=== PATIENT | female | born 1955 | race Caucasian/White ===

== ENCOUNTER 2018-11-27 09:35 | Emergency (ER) | payer OTHER, SELFPAY ==
--- OUTSIDE RECORDS SUMMARY | 2018-11-27 09:38 | XMS REPORT ---
:1955 [facility] Address [address] [place] [address] Dr. Blum [address] [place] [id number] Care Team Providers Name Role Phone Unavailable Unavailable Unavailable Problems This patient has no known problems. Allergies, Adverse Reactions, Alerts This patient has no known allergies or adverse reactions. Medications This patient has no known medications.
--- OUTSIDE RECORDS SUMMARY | 2018-11-27 09:38 | XMS REPORT | Clinical Summary ---
:1955 Author Organization [facility] Address [address] [place] [address] Care Team Providers Name Role Phone Filomena Jimenez Primary Care Provider Allergies Active Allergy Reactions Severity Noted Date Comments Sulfa (Sulfonamide Antibiotics) 2017 Medications Medication Sig Dispensed Refills Start End Status Date Date atenolol (TENORMIN) 50 50 mg daily. 0 Active MG tablet 8 PROAIR HFA 90 Inhale 2 0 Active mcg/actuation inhaler puffs every 6 8 (six) hours as needed. DULoxetine (CYMBALTA) Take 60 mg by 0 Active 60 MG capsule mouth daily. 8 lamoTRIgine (LaMICtal) Take 200 mg 0 Active 200 MG tablet by mouth 8 daily. hydroCHLOROthiazide Take 12.5 mg 0 Active (MICROZIDE) 12.5 mg by mouth 8 capsule every morning. rosuvastatin (CRESTOR) Take 20 mg by 0 Active 20 MG tablet mouth daily. levothyroxine Take 1 tablet 0 Active (SYNTHROID, LEVOXYL) by mouth 8 100 mcg tablet daily. SYMBICORT 80-4.5 Inhale 2 0 Discontinued mcg/actuation inhaler puffs 2 (two) 8 018 (Non-compliance times a day. ) levothyroxine Take 75 mcg 0 Discontinued (SYNTHROID, LEVOXYL) 75 by mouth 8 019 mcg tablet every morning. nicotine polacrilex Chew 1 each 100 each 0 (NICORETTE) 2 mg gum (2 mg total) 8 018 as needed for smoking cessation for up to 30 days. nicotine (NICODERM CQ) Place 1 patch 30 patch 0 Discontinued 14 mg/24 hr on the skin 8 018 daily for 30 days. nicotine (NICODERM CQ) Place 1 patch 30 patch 0 14 mg/24 hr on the skin 8 018 daily for 30 days. amoxicillin-pot 0 Discontinued clavulanate (AUGMENTIN) 8 019 875-125 mg per tablet sucralfate (CARAFATE) 1 Take 1 g by 0 gram tablet mouth. 9 019 Active Problems Problem Noted Date Chronic obstructive pulmonary disease 11/27/2017 Tobacco abuse 11/27/2017 ILD (interstitial lung disease) 11/27/2017 Essential hypertension 11/27/2017 Dyspnea on exertion Encounters Date Type Specialty Care Team Description 11/22/2018 Orders Only Pulmonology Phyllis Bryant MA Chronic obstructive pulmonary disease, unspecified COPD type (HCC); Tobacco abuse; Pulmonary nodules 11/13/2018 Telephone Pulmonology Myrna Muñiz MA 08/29/2018 Office Visit Pulmonology Tarik Casas MD Chronic obstructive pulmonary disease, unspecified COPD type (HCC) (Primary Dx); Tobacco abuse; Pulmonary nodules; Essential hypertension 05/28/2018 Office Visit Pulmonology Tarik Casas MD Chronic obstructive pulmonary disease, unspecified COPD type (HCC) (Primary Dx); Tobacco abuse 05/21/2018 Orders Only Pulmonology Phyllis Bryant MA Chronic obstructive pulmonary disease, unspecified COPD type (HCC); Tobacco abuse 05/06/2018 Telephone Pulmonology Phyllis Bryant MA 03/18/2018 Office Visit Pulmonology Tarik Casas MD Chronic obstructive pulmonary disease, unspecified COPD type (HCC) (Primary Dx); Tobacco abuse; Pulmonary nodules 12/10/2017 Clinical Support Pulmonology Tarik Casas MD Chronic obstructive pulmonary disease, unspecified COPD type (HCC); Vandana Gould Tobacco abuse 12/10/2017 Clinical Support Pulmonology Vandana Gould Chronic obstructive pulmonary disease, unspecified COPD type (HCC); Tobacco abuse 12/10/2017 Clinical Support Pulmonology Vandana Gould Chronic obstructive pulmonary disease, unspecified COPD type (HCC) 12/10/2017 Office Visit Pulmonology Tarik Casas MD Chronic obstructive pulmonary disease, unspecified COPD type (HCC) (Primary Dx); Pulmonary nodules; Tobacco abuse; ILD (interstitial lung disease) (HCC) 12/06/2017 Orders Only Pulmonology Phyllis Bryant MA Chronic obstructive pulmonary disease, unspecified COPD type; Tobacco abuse 12/03/2017 Telephone Pulmonology Phyllis Bryant MA 11/27/2017 Telephone Pulmonology Phyllis Bryant MA 11/27/2017 Telephone Pulmonology Deidra Kraft MA 11/27/2017 Telephone Pulmonology Alban Ramírez MA 2017 Office Visit Pulmonology Tarik Casas MD Chronic obstructive pulmonary disease, unspecified COPD type (Primary Dx); Tobacco abuse; ILD (interstitial lung disease); Essential hypertension after 2017 Immunizations Name Administration Dates Next Due FLUZONE QUAD PF 2017 Pneumococcal Polysaccharide 09/22/2014 Family History Medical History Relation Name Comments Cancer Father Emphysema Father Cancer Mother Relation Name Status Comments Father Mother Social History Tobacco Use Types Packs/Day Years Used Date Current Every Day Smoker Smokeless Tobacco: Never Used Sex Assigned at Date Recorded Not on file Job Start Date Occupation Industry Not on file Not on file Not on file Travel History Travel Start Travel End No recent travel history available. Last Filed Vital Signs Vital Sign Reading Time Taken Comments Blood Pressure 130/76 08/29/2018 11:04 AM CDT Pulse 70 08/29/2018 11:04 AM CDT Temperature 36.7 C (98 F) 08/29/2018 11:04 AM CDT Respiratory Rate - - Oxygen Saturation 95% 08/29/2018 11:04 AM CDT Inhaled Oxygen Concentration - - Weight 74.4 kg (164 lb) 08/29/2018 11:04 AM CDT Height 165.1 cm (5' 5") 12/10/2017 2:33 PM CDT Body Mass Index 27.29 12/10/2017 2:33 PM CDT Plan of Treatment Date Type Specialty Care Team Description 12/23/2018 [place] [id number] [facility] [address] [place] [address] Health Maintenance Due Date Last Done Comments CERVICAL CANCER SCREENING 1977 BREAST CANCER SCREENING 2006 COLONOSCOPY SCREENING 2006 SHINGLES VACCINES (#1) 2006 INFLUENZA VACCINE 10/10/2018 2017 Procedures Procedure Name Priority Date/Time Associated Diagnosis Comments CT CHEST WO Routine 11/22/2018 3:37 PM Chronic obstructive CONTRAST CDT pulmonary disease, unspecified COPD type (HCC) Tobacco abuse Pulmonary nodules CT CHEST WO Routine 05/21/2018 4:21 PM Chronic obstructive Results for this CONTRAST CDT pulmonary disease, procedure are in unspecified COPD the results type (HCC) section. Tobacco abuse CT CHEST LUNG Routine 12/06/2017 10:13 AM Chronic obstructive Results for this CANCER SCREENING CDT pulmonary disease, procedure are in unspecified COPD the results type section. Tobacco abuse OBTAIN MEDICAL Routine 12/04/2017 4:59 PM Chronic obstructive Results for this RECORDS CDT pulmonary disease, procedure are in unspecified COPD the results type section. Tobacco abuse after [address] Chest Wo Contrast (11/22/2018 3:37 PM CDT)Only the most recent of2 resultswithin the time period is included. 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
[2018-11-27] MEDS ORDERED: CYCLOBENZAPRINE 10 MG TAB ONE (10:09)
[2018-11-27] MEDS ORDERED: IBUPROFEN 200 MG TAB PO ONE (10:10)
--- NOTE | 2018-11-27 11:15 | EDPHYS ---
Physician Documentation [facility] Name: Chanell Kohler Age: 63 yrs Sex: Female : 1955 Arrival Date: 11/27/2018 Time: 09:45 Bed 18 Private MD: ED Physician Arnel Bull HPI: 11/27 11:00 This 63 yrs old Female presents to ER via Ambulatory with complaints of Fall pm1 Injury. 11:00 Details of fall: The patient fell Details of fall: The patient fell from a height, from pm1 a ladder, approximately 1 feet. Onset: The symptoms/episode began/occurred this morning, at 03:00. Associated injuries: The patient sustained right bicep. Severity of symptoms: in the emergency department the symptoms have improved. The patient has not experienced similar symptoms in the past. The patient has not recently seen a physician. Patient was stepping down from a ladder and missed the last step causing her to fall on her right side. Patient presenting with pain to right biceps area. No head injury, headache, neck pain. No right shoulder pain. Patient walking without any pain. No hip pain. Historical: - Allergies: :59 Sulfa (Sulfonamide Antibiotics); hb - Home Meds: 10:06 Crestor 20 mg oral tab 1 tab once daily [Active]; atenolol 50 mg Oral tab 1 tab once iw daily [Active]; levothyroxine 100 mcg tab 1 tab once daily [Active]; hydrochlorothiazide 12.5 mg Oral tab 1 tab once daily [Active]; Cymbalta 60 mg oral cpDR 1 cap once daily [Active]; Lamictal 200 mg Oral tab 1 tab once daily [Active]; multivitamin oral cap daily [Active]; Fish Oil oral oral daily [Active]; vitamin B complex oral cap daily [Active]; Vitamin C Oral daily [Active]; - PSHx: :59 gallbladder stent; Tubal ligation; Hysterectomy; Appendectomy; hb - Immunization history: Last tetanus immunization: - up to date. - Social history:: Smoking status: Patient/guardian denies using tobacco. - Ebola Screening: : No symptoms or risks identified at this time. ROS: 11:00 Constitutional: Negative for fever, chills, and weight loss, Eyes: Negative for injury, pm1 pain, redness, and discharge, ENT: Negative for injury, pain, and discharge, Neck: Negative for injury, pain, and swelling, Cardiovascular: Negative for chest pain, palpitations, and edema, Respiratory: Negative for shortness of breath, cough, wheezing, and pleuritic chest pain, Abdomen/GI: Negative for abdominal pain, nausea, vomiting, diarrhea, and constipation, Back: Negative for injury and pain. 11:00 Skin: Negative for injury, rash, and discoloration, Neuro: Negative for headache, weakness, numbness, tingling, and seizure. 11:00 MS/extremity: Positive for pain, of the right bicep, Negative for decreased range of motion, deformity. Exam: 11:00 Constitutional: This is a well developed, well nourished patient who is awake, alert, pm1 and in no acute distress. Head/Face: Normocephalic, atraumatic. Eyes: Pupils equal round and reactive to light, extra-ocular motions intact. Lids and lashes normal. Conjunctiva and sclera are non-icteric and not injected. Cornea within normal limits. Periorbital areas with no swelling, redness, or edema. ENT: Nares patent. No nasal discharge, no septal abnormalities noted. Tympanic membranes are normal and external auditory canals are clear. Oropharynx with no redness, swelling, or masses, exudates, or evidence of obstruction, uvula midline. Mucous membranes moist. Neck: Trachea midline, no thyromegaly or masses palpated, and no cervical lymphadenopathy. Supple, full range of motion without nuchal rigidity, or vertebral point tenderness. No Meningismus. Chest/axilla: Normal chest wall appearance and motion. Nontender with no deformity. No lesions are appreciated. Cardiovascular: Regular rate and rhythm with a normal S1 and S2. No gallops, murmurs, or rubs. Normal PMI, no JVD. No pulse deficits. Respiratory: Lungs have equal breath sounds bilaterally, clear to auscultation and percussion. No rales, rhonchi or wheezes noted. No increased work of breathing, no retractions or nasal flaring. Abdomen/GI: Soft, non-tender, with normal bowel sounds. No distension or tympany. No guarding or rebound. No evidence of tenderness throughout. Back: No spinal tenderness. No costovertebral tenderness. Full range of motion. Skin: Warm, dry with normal turgor. Normal color with no rashes, no lesions, and no evidence of cellulitis. 11:00 Musculoskeletal/extremity: Extremities: grossly normal except: noted in the right bicep: tenderness, There is no evidence of decreased ROM, deformity, swelling, Circulation is intact in all extremities. Pulses: are normal with no appreciated deficits, noted to be 2+ in the right radial artery. Vital Signs: 09:53 BP 130 / 62; Pulse 63; Resp 16; Temp 98.2; Pulse Ox 100% on R/A; Weight 54.43 kg; hb Height 5 ft. 4 in. (162.56 cm); Pain 2/10; 10:53 BP 105 / 59; Pulse 59; Resp 16; Temp 98.0(O); Pulse Ox 98% on R/A; mh5 09:53 Body Mass Index 20.60 (54.43 kg, 162.56 cm) hb Nery Coma Score: 09:53 Eye Response: spontaneous(4). Verbal Response: oriented(5). Motor Response: obeys hb commands(6). Total: 15. Trauma Score (Adult): 09:53 Eye Response: spontaneous(1); Verbal Response: oriented(1); Motor Response: obeys hb commands(2); Systolic BP: > 89 mm Hg(4); Respiratory Rate: 10 to 29 per min(4); [place] Score: 15; Trauma Score: 12 10:45 Eye Response: spontaneous(1); Verbal Response: oriented(1); Motor Response: obeys hb commands(2); Systolic BP: > 89 mm Hg(4); Respiratory Rate: 10 to 29 per min(4); Nery Score: 15; Trauma Score: 12 MDM: 09:51 Patient medically screened. pm1 11:13 Data reviewed: vital signs. Data interpreted: Pulse oximetry: on room air is 98 %. pm1 Interpretation: normal. Counseling: I had a detailed discussion with the patient and/or guardian regarding: the historical points, exam findings, and any diagnostic results supporting the discharge/admit diagnosis, radiology results, the need for outpatient follow up, to return to the emergency department if symptoms worsen or persist or if there are any questions or concerns that arise at home. 11:27 ED course: Patient able to move right arm full range of motion without any difficulty. pm1 Offered sling, but patient wants to work tomorrow. recommended that if pain worsens then she can get a sling OTC and use when not working. 11/27 09:57 Order name: Briana Right XRAY; Complete Time: 11:25 pm1 Administered Medications: 10:16 Drug: Flexeril 10 mg Route: PO; hb 10:16 Drug: Ibuprofen 600 mg Route: PO; hb Disposition: 13:26 Co-signature as Attending Physician, Arnel Bull MD I agree with the assessment and kdr plan of care. Disposition: 11/27/18 11:14 Discharged to Home. Impression: Contusion of right upper arm, Strain of muscle, fascia and tendon of long head of biceps, right arm. - Condition is Stable. - Discharge Instructions: Contusion, Muscle Strain. - Prescriptions for Cyclobenzaprine 10 mg Oral Tablet - take 1 tablet by ORAL route every 8 hours As needed; 30 tablet. - Work release form, Medication Reconciliation Form, Thank You Letter, Antibiotic Education, Prescription Opioid Use form. - Follow up: Emergency Department; When: As needed; Reason: Worsening of condition. Follow up: Private Physician; When: 2 - 3 days; Reason: Recheck today's complaints, Continuance of care, Re-evaluation by your physician. - Problem is new. - Symptoms have improved. Signatures: Dispatcher [employer] EDMS Arnel Bull MD MD [facility] Yari Bustillos RN RN Chris Xiong NP E LEARNING COORDINATOR pm1 Chantelle Ramos RN RN hb Corrections: (The following items were deleted from the chart) 11:34 11:14 11/27/2018 11:14 Discharged to Home. Impression: Contusion of right upper arm; hb Strain of muscle, fascia and tendon of long head of biceps, right arm. Condition is Stable. Forms are Medication Reconciliation Form, Thank You Letter, Antibiotic Education, Prescription Opioid Use. Follow up: Emergency Department; When: As needed; Reason: Worsening of condition. Follow up: Private Physician; When: 2 - 3 days; Reason: Recheck today's complaints, Continuance of care, Re-evaluation by your physician. Problem is new. Symptoms have improved. pm1
--- NOTE | 2018-11-27 11:15 | ER ---
Nurse's Notes [facility] Name: Chanell Kohler Age: 63 yrs Sex: Female : 1955 Arrival Date: 11/27/2018 Time: 09:45 Bed 18 Private MD: Diagnosis: Contusion of right upper arm;Strain of muscle, fascia and tendon of long head of biceps, right arm Presentation: 11/27 09:53 Presenting complaint: Slipped on last step while descending ladder, fell onto right side, c/o right upper arm pain 2/10. Denies other injuries. Negative LOC. Not on blood thinners. Care prior to arrival: None. Mechanism of Injury: Fall down 1 steps. Trauma event details: Injury occurred in the [facility], Injury occurred: at home. Injury occurred: November 27, 2018 Injury occurred at: 09:00. 09:53 Acuity: MIKY 3 hb 09:53 Method Of Arrival: Ambulatory 09:59 Transition of care: patient was not received from another setting of care. Onset of hb symptoms was November 27, 2018. Risk Assessment: Do you want to hurt yourself or someone else? Patient reports no desire to harm self or others. Initial Sepsis Screen: Does the patient meet any 2 criteria? No. Patient's initial sepsis screen is negative. Does the patient have a suspected source of infection? No. Patient's initial sepsis screen is negative. Trauma Activation: Not Applicable Physician: ED Physician; Name: ; Notified At: ; Arrived At: Physician: General Surgeon; Name: ; Notified At: ; Arrived At: Physician: Radiology; Name: ; Notified At: ; Arrived At: Physician: Respiratory; Name: ; Notified At: ; Arrived At: Physician: Lab; Name: ; Notified At: ; Arrived At: Historical: - Allergies: 09:59 Sulfa (Sulfonamide Antibiotics); hb - Home Meds: 10:06 Crestor 20 mg oral tab 1 tab once daily [Active]; atenolol 50 mg Oral tab 1 tab once iw daily [Active]; levothyroxine 100 mcg tab 1 tab once daily [Active]; hydrochlorothiazide 12.5 mg Oral tab 1 tab once daily [Active]; Cymbalta 60 mg oral cpDR 1 cap once daily [Active]; Lamictal 200 mg Oral tab 1 tab once daily [Active]; multivitamin oral cap daily [Active]; Fish Oil oral oral daily [Active]; vitamin B complex oral cap daily [Active]; Vitamin C Oral daily [Active]; - PSHx: 09:59 gallbladder stent; Tubal ligation; Hysterectomy; Appendectomy; hb - Immunization history: Last tetanus immunization: - up to date. - Social history:: Smoking status: Patient/guardian denies using tobacco. - Ebola Screening: : No symptoms or risks identified at this time. Screenin:53 Abuse screen: Denies threats or abuse. Denies injuries from another. Tuberculosis hb screening: No symptoms or risk factors identified. 09:59 Nutritional screening: No deficits noted. Fall Risk None identified. hb Primary Survey: :53 NO uncontrolled hemorrhage observed. A: The patient is alert. Airway: patent. hb Breathing/Chest: Respiratory pattern: regular, Respiratory effort: spontaneous, unlabored, Chest inspection: symmetrical rise and fall of the chest. Circulation: Skin color: pink, Skin temperature: warm, dry. Disability Alert. Exposure/Environment: There is no evidence of uncontrolled external bleeding. 10:45 Reassessment Airway Airway Patent Breathing/Chest Respiratory pattern Regular hb Respiratory effort Spontaneous Unlabored Chest inspection Symmetrical Circulation Color [place] Disability Alert. Secondary Survey: :53 HEENT: No deficits noted. Gastrointestinal: No deficits noted. : No signs and/or hb symptoms were reported regarding the genitourinary system. Musculoskeletal: Reports right upper arm pain. Assessment: 09:53 General: Appears in no apparent distress. Behavior is calm, cooperative. Pain: Pain hb currently is 2 out of 10 on a pain scale. Neuro: Level of Consciousness is awake, alert, obeys commands, Oriented to person, place, time, situation. EENT: No signs and/or symptoms were reported regarding the EENT system. Cardiovascular: Capillary refill < 3 seconds Patient's skin is warm and dry. Respiratory: Airway is patent Respiratory effort is even, unlabored, Respiratory pattern is regular, symmetrical, Breath sounds are clear bilaterally. GI: No signs and/or symptoms were reported involving the gastrointestinal system. : No signs and/or symptoms were reported regarding the genitourinary system. Derm: Skin is intact, is healthy with good turgor, Skin is pink, warm \T\ dry. Musculoskeletal: Reports right upper arm pain. Vital Signs: 09:53 BP 130 / 62; Pulse 63; Resp 16; Temp 98.2; Pulse Ox 100% on R/A; Weight 54.43 kg; hb Height 5 ft. 4 in. (162.56 cm); Pain 2/10; 10:53 BP 105 / 59; Pulse 59; Resp 16; Temp 98.0(O); Pulse Ox 98% on R/A; mh5 09:53 Body Mass Index 20.60 (54.43 kg, 162.56 cm) hb [place] Coma Score: 09:53 Eye Response: spontaneous(4). Verbal Response: oriented(5). Motor Response: obeys hb commands(6). Total: 15. Trauma Score (Adult): 09:53 Eye Response: spontaneous(1); Verbal Response: oriented(1); Motor Response: obeys hb commands(2); Systolic BP: > 89 mm Hg(4); Respiratory Rate: 10 to 29 per min(4); [place] Score: 15; Trauma Score: 12 10:45 Eye Response: spontaneous(1); Verbal Response: oriented(1); Motor Response: obeys hb commands(2); Systolic BP: > 89 mm Hg(4); Respiratory Rate: 10 to 29 per min(4); Nery Score: 15; Trauma Score: 12 ED Course: 09:45 Patient arrived in ED. mr 09:51 Chris Xiong, SHERIDAN is PHCP. pm1 09:51 Arnel Bull MD is Attending Physician. pm1 09:53 Chantelle Ramos, AMANDA is Primary Nurse. hb 09:53 Patient has correct armband on for positive identification. Call light in reach. hb 09:53 Patient maintains SpO2 saturation greater than 95% on room air. hb 09:54 Triage completed. hb 10:00 Arm band placed on. hb 10:00 Thermoregulation: warm blanket given to patient. hb 10:52 Humerus Right XRAY In Process Unspecified. EDMS 11:33 No provider procedures requiring assistance completed. Patient did not have IV access hb during this emergency room visit. Administered Medications: 10:16 Drug: Flexeril 10 mg Route: PO; hb 10:16 Drug: Ibuprofen 600 mg Route: PO; hb Intake: 09:53 PO: 0ml; Total: 0ml. hb Output: 09:53 Urine: 0ml; Total: 0ml. hb Outcome: 11:14 Discharge ordered by . pm1 11:33 Discharged to home ambulatory. hb 11:33 Condition: stable 11:33 Discharge instructions given to patient, Instructed on discharge instructions, follow up and referral plans. medication usage, Demonstrated understanding of instructions, follow-up care, medications, Prescriptions given X 1. 11:33 Patient's length of stay was not longer than 2 hours. 11:34 Patient left the ED. hb Signatures: Dispatcher [employer] [facility] Bianca Waller Yari Bustillos, AMANDA PATEL Chris Xiong, DISHTANK OPERATOR DISHTANK OPERATOR pm1 Chantelle Ramos RN RN hb Martinez, Maria 5 Corrections: (The following items were deleted from the chart) 09:57 09:53 Presenting complaint: Slipped on last step while descending ladder, fell onto hb right side, c/o right shoulder pain 6/10. Denies other injuries. Negative LOC. Not on blood thinners hb 09:58 09:53 Musculoskeletal: Reports right shoulder pain hb hb 09:58 09:53 Musculoskeletal: Reports right shoulder pain hb hb 10:01 09:53 Presenting complaint: Slipped on last step while descending ladder, fell onto hb right side, c/o right upper arm pain 6/10. Denies other injuries. Negative LOC. Not on blood thinners hb 10:01 09:53 Pain: Pain currently is 6 out of 10 on a pain scale. hb hb 10:02 09:53 BP 130 / 62; Pulse 63bpm; Resp 16bpm; Pulse Ox 100% RA; Temp 98.2F; Pain 6/10; hb hb 10:56 10:53 Pulse 59bpm; Resp 16bpm; Pulse Ox 98% RA; Temp 98.0F Oral; mh5 mh5
--- NOTE | 2018-11-27 11:19 | RAD REPORT ---
EXAM DESCRIPTION: RAD - Humerus Right - 11/27/2018 10:49 am CLINICAL HISTORY: Slip and fall, right arm pain COMPARISON: None. FINDINGS: No fracture is identified. There is no dislocation or periosteal reaction noted. AC joint degenerative changes are present without separation. IMPRESSION: Negative right humerus examination for fracture or acute finding.
[2018-11-27 12:06] VITALS: BP 105/59; TEMP 98; O2SAT 98
== END 2018-11-27 11:34 | disposition home or self-care (01) ==
LOC: ER 09:35
DX: S46.111A Strain of muscle, fascia and tendon of long head of biceps, right arm, initial encounter (principal); S40.021A Contusion of right upper arm, initial encounter; W11.XXXA Fall on and from ladder, initial encounter; Y93.9 Activity, unspecified; Y92.9 Unspecified place or not applicable; Z88.2 Allergy status to sulfonamides
CPT/HCPCS: 99284

== ENCOUNTER 2024-02-13 23:05 | Emergency (ER) | payer OTHER ==
[2024-02-13] MEDS ORDERED: ONDANSETRON 4 MG/2 ML VIAL ONE (23:59)
[2024-02-13] MEDS ORDERED: MORPHINE 2 MG/ML SYR ONE (23:59)
[2024-02-13] MEDS ORDERED: NA CHLORIDE 0.9% 1,000 ML ONE (23:59)
[2024-02-13] MEDS ORDERED: FAMOTIDINE 20 MG/2 ML VIAL IV ONE (23:59)
[2024-02-14 00:17] LABS: Absolute Basophils 0.1 K/uL (0-0.5); Absolute Eosinophils 0.2 K/uL (0-0.5); Absolute Lymphocytes (CBC) 1.7 K/uL (0.7-4.9); Absolute Monocytes 0.9 K/uL (0.1-1.3); Absolute Neutrophil 4.6 K/uL (1.8-8.0); Basophils % 0.9 % (0-1.3); Eosinophils % 2.6 % (0-4.4); Hematocrit 40.4 % (36.0-45.0); Hemoglobin 13.5 g/dL (12.0-15.0); Lymphocytes % 22.8 % (15.3-44.8); MCH 31.4 pg (27.0-35.0); MCHC 33.4 g/dL (32.0-36.0); MCV 93.9 fL (80-100); MPV 9.6 fL (7.6-11.3); Neutrophils % 61.7 % (41.7-73.7); Nucleated Red Blood Cells % 0.1 % (0-0); Platelets 261 thou/uL (152-406); Red Cell Distribution Width 13.4 % (12.1-15.2)
[2024-02-14 00:28] LABS: Albumin 3.5 g/dL (3.4-5.0); Albumin/Globulin Ratio 1.1 (1.1-1.8); Anion Gap 9.6 mEq/L (5.0-15.0); Bilirubin Total 0.3 mg/dL (0.2-1.0); Globulin 3.1 g/dL (2.3-3.5); Potassium 3.6 mEq/L (3.5-5.1); Protein, Total 6.6 g/dL (6.4-8.2)
[2024-02-14 00:44] LABS: Renal Epithelial <5 /HPF (None Seen); Specific Gravity 1.015 (1.005-1.030); Sqamous Epithelial <5 /HPF (None Seen); Urine Bacteria None Seen /HPF (<20); Urine Bilirubin NEGATIVE (Negative); Urine Blood Negative (Negative); Urine Clarity Clear (Clear); Urine Color Light-Yellow (Yellow); Urine Culture Reflex Order NOT NEEDED; Urine Glucose NEGATIVE (Negative); Urine Ketones NEGATIVE (Negative); Urine Microscopic Reflex YN ORDER UMIC; Urine Nitrite NEGATIVE (Negative); Urine Protein NEGATIVE (Negative); Urine RBC None Seen /HPF (None Seen); Urine Urobilinogen Normal (Normal); Urine WBC <5 /HPF (<5)
--- NOTE | 2024-02-14 01:03 | RAD REPORT ---
EXAM DESCRIPTION: Abdomen Exam Limited CLINICAL HISTORY: 68 years Female, ABD PAIN TECHNIQUE: Limited transabdominal sonography of the gallbladder was performed. COMPARISON: None. FINDINGS: Gallbladder is partially contracted. No biliary sludge or stones. No gallbladder wall thickening or p ericholecystic fluid. Common bile duct measures 5 mm. IMPRESSION: 1. No cholelithiasis or sonographic evidence for cholecystitis. Electronically signed by: Eddie Islas MD 02/14/2024 12:55 AM [facility] N Due to temporary technical issues with the PACS/[employer] reporting system, reports are being signed by the in-house radiologist without review as a courtesy to ensure prompt reporting the interpreting radiologist is fully responsible for the content of the report. Transcribed Date/Time: 02/14/2024 1:03 AM
--- NOTE | 2024-02-14 01:53 | RAD REPORT ---
EXAM DESCRIPTION: Abdomen Pelvis W Contrast CLINICAL HISTORY: 68 years Female, ABD PAIN TECHNIQUE: Helical CT axial images are obtained from the lung bases to the pubic symphysis with IV co ntrast. No oral contrast was administered. Multiplanar reconstruction. This exam was performed according to our departmental dose-optimization program, which includes automated exposure control, a djustment of the mA and/or kV according to patient size and/or use of iterative reconstruction technique. COMPARISON: Gallbladder ultrasound performed earlier same day FINDINGS: LUNG BASES: No basilar consolidation or effusions. LIVER: Normal in size. Normal attenuation. No focal masses. HEPATOBILIARY: Normal-appearing gallbladder. No intra- or extrahepatic ductal dilatation. SPLEEN: Normal size. PANCREAS: Normal size and contour. No focal mass. ADRENAL GLANDS: Normal size. No adrenal masses. KIDNEYS: Bilateral kidneys are normal in size without obstructing calculi or hydronephrosis. No nep hrolithiasis. Right upper pole 1.2 cm simple renal cyst, no further workup is warranted. No focal solid mass. BOWEL AND MESENTERY: No small or large bowel dilatation. Descending and sigmoid colon diverticulosis. The appendix is not visualized, no secondary signs of appendicitis. No abnormal mesenteric lymphadenopathy. No free fluid or pneumoperitoneum. RETROPERITONEUM: Normal caliber abdominal aorta without aneurysm. No abnormal retroperitoneal lymphad enopathy. PELVIS: Urinary bladder is suboptimally distended. Uterus and adnexal regions are unremarkable. ABDOMINAL WALL: The abdominal wall is intact. BONES: No suspicious osseous lytic or blastic lesions seen. IMPRESSION: 1. No acute intra-abdominal or pelvic disease. 2. Descending and sigmoid colon diverticulosis without diverticulitis. Electronically signed by: Eddie sIlas MD 02/14/2024 01:14 AM [facility] N Due to temporary technical issues with the PACS/[employer] reporting system, reports are being quang d by the in-house radiologist without review as a courtesy to ensure prompt reporting the interpreting radiologist is fully responsible for the content of the report. Transcribed Date/Time: 02/14/2024 1:53 AM
--- NOTE | 2024-02-14 03:14 | EDPHYS ---
Physician Documentation [facility] Name: Chanell Kohler Age: 68 yrs Sex: Female : 1955 Arrival Date: 02/13/2024 Time: 23:05 Bed 8 Private MD: ED Physician Terry Macdonald HPI: 02/13 00:03 This 68 yrs old Female presents to ER via Ambulatory with complaints of Abdominal Pain, kb Low Back Pain. 00:03 Pt is a 68 year old female who presents for epigastric pain that radiates to back. kb States pain started at 2100 this evening. States she has had this pain 4-5 times this month and it normally comes on after eating. Reports associated nausea. Denies vomiting, diarrhea, fever. . Historical: - Allergies: 02/12 23:43 Sulfa (Sulfonamide Antibiotics); lg3 - PMHx: 23:43 Hypertensive disorder; Diverticulitis; Hypothyroidism; Depressive disorder; lg3 Hypercholesterolemia; - PSHx: 23:43 Appendectomy; Total abdominal hysterectomy; Ligation of fallopian tube; lg3 - Immunization history:: Adult Immunizations up to date. - Infectious Disease History:: Denies. - Social history:: Smoking status: Patient denies any tobacco usage or history of. Patient/guardian denies using alcohol, street drugs. ROS: 02/13 00:03 Constitutional: As per HPI kb Exam: 00:03 Constitutional: This is a well developed, well nourished patient who is awake, alert, kb and in no acute distress. Head/Face: Normocephalic, atraumatic. ENT: Moist Mucous membranes Cardiovascular: Regular rate Respiratory: Respirations even and unlabored. No increased work of breathing. Talking in full sentences Skin: Warm, dry with normal turgor. Normal color. MS/ Extremity: Pulses equal, no cyanosis. Neurovascular intact. Full, normal range of motion. Neuro: Awake and alert, GCS 15, oriented to person, place, time, and situation. 00:03 Abdomen/GI: Inspection: abdomen appears normal, Bowel sounds: normal, Palpation: soft, in all quadrants, moderate abdominal tenderness, in the epigastric area and right upper quadrant, Vital Signs: 02/12 23:36 BP 111 / 60; Pulse 79; Resp 17 S; Temp 98.5(O); Pulse Ox 95% on R/A; Weight 95.25 kg lg3 (R); Height 5 ft. 4 in. (R); Pain 07/19; 02/13 02:10 BP 101 / 62; Pulse 70; Resp 18; Pulse Ox 96% on R/A; ay 03:00 BP 109 / 66; Pulse 70; Resp 17 S; Pulse Ox 96% on R/A; ha1 02/12 23:36 Body Mass Index 36.05 (95.25 kg, 162.56 cm) lg3 02/12 23:36 Pain Scale: Adult lg3 [place] Coma Score: 02:10 Eye Response: spontaneous(4). Motor Response: obeys commands(6). Verbal Response: ay oriented(5). Total: 15. MDM: 02/12 23:24 Medical Screening Exam initiated kb 02/13 00:06 Differential diagnosis: cholecystitis, Cholelithiasis, non-specific abd pain, kb pancreatitis. Data reviewed: vital signs, nurses notes. Historians other than the Patient: Spouse/Significant Other: . 00:42 Transition of care: After a detail discussion of the patient's case, care is kb transferred to Terry Macdonald MD. 03:01 ED course: EXAM DESCRIPTION: Abdomen Exam Limited CLINICAL HISTORY: 68 years Female, sp4 ABD PAIN TECHNIQUE: Limited transabdominal sonography of the gallbladder was performed. COMPARISON: None. FINDINGS: Gallbladder is partially contracted. No biliary sludge or stones. No gallbladder wall thickening or pericholecystic fluid. Common bile duct measures 5 mm. IMPRESSION: 1. No cholelithiasis or sonographic evidence for cholecystitis. . ED course: EXAM DESCRIPTION: Abdomen Pelvis W Contrast CLINICAL HISTORY: 68 years Female, ABD PAIN TECHNIQUE: Helical CT axial images are obtained from the lung bases to the pubic symphysis with IV contrast. No oral contrast was administered. Multiplanar reconstruction. This exam was performed according to our departmental dose-optimization program, which includes automated exposure control, adjustment of the mA and/or kV according to patient size and/or use of iterative reconstruction technique. COMPARISON: Gallbladder ultrasound performed earlier same day FINDINGS: LUNG BASES: No basilar consolidation or effusions. LIVER: Normal in size. Normal attenuation. No focal masses. HEPATOBILIARY: Normal-appearing gallbladder. No intra- or extrahepatic ductal dilatation. SPLEEN: Normal size. PANCREAS: Normal size and contour. No focal mass. ADRENAL GLANDS: Normal size. No adrenal masses. KIDNEYS: Bilateral kidneys are normal in size without obstructing calculi or hydronephrosis. No nephrolithiasis. Right upper pole 1.2 cm simple renal cyst, no further workup is warranted. No focal solid mass. BOWEL AND MESENTERY: No small or large bowel dilatation. Descending and sigmoid colon diverticulosis. The appendix is not visualized, no secondary signs of appendicitis. No abnormal mesenteric lymphadenopathy. No free fluid or pneumoperitoneum. RETROPERITONEUM: Normal caliber abdominal aorta without aneurysm. No abnormal retroperitoneal lymphadenopathy. PELVIS: Urinary bladder is suboptimally distended. Uterus and adnexal regions are unremarkable. ABDOMINAL WALL: The abdominal wall is intact. BONES: No suspicious osseous lytic or blastic lesions seen. IMPRESSION: 1. No acute intra-abdominal or pelvic disease. 2. Descending and sigmoid colon diverticulosis without diverticulitis. Electronically signed by: Eddie Islas MD 02/14/2024 01:14 AM [facility]. 03:08 Differential diagnosis: arthritis, strain, contusion, Herniated disc UTI. Consideration sp4 of Admission/Observation Escalation of care including admission/observation considered. ED course: Abdominal workup is negative, patient stable for discharge home. Patient states pain has subsided. 02/12 23:42 Order name: CBC with Diff; Complete Time: 00:21 kb 02/12 23:42 Order name: CMP; Complete Time: 00:29 kb 02/12 23:42 Order name: Lipase; Complete Time: 00:29 kb 02/12 23:42 Order name: Urinalysis w/ reflexes; Complete Time: 02:57 kb 02/12 23:42 Order name: Abdomen Limited US kb 02/13 00:21 Order name: CT Abd/Pelvis - IV Contrast Only kb 02/12 23:42 Order name: IV Saline Lock; Complete Time: 00:07 kb 02/12 23:42 Order name: Labs collected and sent; Complete Time: 00:07 kb Administered Medications: 00:07 Drug: Famotidine IVP 20 mg IVP once; dilute with 10 mL 0.9% NaCl; give over 2 minutes lg3 Route: IVP; Site: left forearm; 00:35 Follow up: Response: No adverse reaction; Marked relief of symptoms ha1 00:07 Drug: Ondansetron IVP 4 mg IVP once; over 2 minutes Route: IVP; Site: left forearm; lg3 00:35 Follow up: Response: No adverse reaction; Marked relief of symptoms ha1 00:07 Drug: NS 0.9% IV 1000 ml IV at 1 bolus Per protocol; to be given as a bolus over 60 lg3 minutes Route: IV; Rate: 1 bolus; Site: left forearm; 03:32 Follow up: Response: No adverse reaction; IV Status: Completed infusion; IV Intake: ha1 1000ml 03:32 Not Given (Patient Refused): morphineor iv 2 mg IVP once over 4 mins ha1 Disposition: 03:11 Co-signature as Attending Physician, Terry Macdonald MD I agree with the assessment sp4 and plan of care. I reviewed the patient's care provided by Advanced Practice Provider \T\ agree w/ the diagnosis \T\ care plan. I personally saw the pt \T\ performed a substantive portion of the visit, incldng all aspects of the (History/Exam/Medical Decision Making). Disposition Summary: 02/14/24 03:13 Discharge Ordered Notes: Location: Home sp4 Problem: new sp4 Symptoms: have improved sp4 Condition: Stable sp4 Diagnosis - Acute mid abdominal pain , Acute Lower Back pain sp4 Followup: sp4 - With: Private Physician - When: 7 - 10 days - Reason: Recheck today's complaints Discharge Instructions: - Discharge Summary Sheet sp4 - Abdominal Pain, Adult, [id number] sp4 Forms: - Patient Portal Instructions sp4 Signatures: Dispatcher [employer] Avani Almanzar FNP-C FNP-Norah Lima RN RN 3 Terry Macdonald MD MD 4 Ryann Zuniga RN 1 Corrections: (The following items were deleted from the chart) 02/12 23:42 23:42 Abdomen Limited+[id number] ordered. MAZIN RETANA
--- NOTE | 2024-02-14 03:14 | ER ---
Nurse's Notes [facility] Name: Chanell Kohler Age: 68 yrs Sex: Female : 1955 Arrival Date: 02/13/2024 Time: 23:05 Bed 8 Private MD: Diagnosis: Acute mid abdominal pain , Acute Lower Back pain Presentation: 02/12 23:36 Chief complaint: Patient states: abdominal pain and pressure radiating to middle back lg3 beginning around 9pm. Coronavirus screen: Client denies travel out of the [place] in the last 14 days. At this time, the client does not indicate any symptoms associated with coronavirus-19. Ebola Screen: No symptoms or risks identified at this time. Initial Sepsis Screen: Does the patient meet any 2 criteria? No. Patient's initial sepsis screen is negative. Does the patient have a suspected source of infection? No. Patient's initial sepsis screen is negative. Risk Assessment: Do you want to hurt yourself or someone else? Patient reports no desire to harm self or others. Onset of symptoms was February 13, 2024. 23:36 Method Of Arrival: Ambulatory lg3 23:36 Acuity: MIKY 3 lg3 Triage Assessment: 23:43 General: Appears in no apparent distress. Behavior is calm, cooperative. Pain: lg3 Complains of pain in abdomen Pain radiates to back. EENT: No deficits noted. No signs and/or symptoms were reported regarding the EENT system. Neuro: No deficits noted. Lau Agitation-Sedation Scale (RASS): 0 - Alert and Calm Level of Consciousness is awake, alert, obeys commands, Oriented to person, place, time, situation. Cardiovascular: No deficits noted. Denies chest pain, shortness of breath, Capillary refill < 3 seconds Clubbing of nail beds is absent JVD is absent Patient's skin is warm and dry. Respiratory: No deficits noted. Airway is patent Respiratory effort is even, unlabored, Respiratory pattern is regular, symmetrical. GI: Abdomen is round non-distended, obese, Abd is soft X 4 quads Abdomen is tender to palpation in epigastric area and right upper quadrant Reports nausea. : No signs and/or symptoms were reported regarding the genitourinary system. Derm: No deficits noted. No signs and/or symptoms reported regarding the dermatologic system. Skin is intact, is healthy with good turgor, Skin is dry, Skin is normal, Skin temperature is warm. Musculoskeletal: No deficits noted. No signs and/or symptoms reported regarding the musculoskeletal system. Circulation, motion, and sensation intact. Range of motion: intact in all extremities. Historical: - Allergies: 23:43 Sulfa (Sulfonamide Antibiotics); lg3 - PMHx: 23:43 Hypertensive disorder; Diverticulitis; Hypothyroidism; Depressive disorder; lg3 Hypercholesterolemia; - PSHx: 23:43 Appendectomy; Total abdominal hysterectomy; Ligation of fallopian tube; lg3 - Immunization history:: Adult Immunizations up to date. - Infectious Disease History:: Denies. - Social history:: Smoking status: Patient denies any tobacco usage or history of. Patient/guardian denies using alcohol, street drugs. Screenin:46 [facility] ED Fall Risk Assessment (Adult) History of falling in the last 3 months, lg3 including since admission No falls in past 3 months (0 pts) Confusion or Disorientation No (0 pts) Intoxicated or Sedated No (0 pts) Impaired Gait No (0 pts) Mobility Assist Device Used No (0 pt) Altered Elimination No (0 pt) Score/Fall Risk Level 0 - 2 = Low Risk Oriented to surroundings, Maintained a safe environment, Educated pt \T\ family on fall prevention, incl call for assistance when getting out of bed, Assessed \T\ reinforced patient's understanding of fall precautions. Abuse screen: Denies threats or abuse. Denies injuries from another. Nutritional screening: No deficits noted. Tuberculosis screening: No symptoms or risk factors identified. 02/13 02:10 [facility] ED Fall Risk Assessment (Adult) History of falling in the last 3 months, ay including since admission No falls in past 3 months (0 pts) Confusion or Disorientation No (0 pts) Intoxicated or Sedated No (0 pts) Impaired Gait No (0 pts) Mobility Assist Device Used No (0 pt) Altered Elimination No (0 pt) Score/Fall Risk Level 0 - 2 = Low Risk Oriented to surroundings, Maintained a safe environment, Educated pt \T\ family on fall prevention, incl call for assistance when getting out of bed, Assessed \T\ reinforced patient's understanding of fall precautions. 02:10 Abuse screen: Denies threats or abuse. Nutritional screening: No deficits noted. ay Tuberculosis screening: No symptoms or risk factors identified. Assessment: 12/04 23:46 General: see triage assessment. GI: Bowel sounds present X 4 quads. lg3 02/13 01:07 Reassessment: Patient appears in no apparent distress at this time. No changes from lg3 previously documented assessment. Patient and/or family updated on plan of care and expected duration. Pain level reassessed. Patient is alert, oriented x 3, equal unlabored respirations, skin warm/dry/pink. Patient states feeling better. 02:10 General: Appears comfortable, Behavior is calm, cooperative. Pain: Denies pain. Neuro: ay Level of Consciousness is awake, alert, obeys commands, Oriented to person, place, time, situation, Speech is normal. Cardiovascular: Capillary refill < 3 seconds. Respiratory: Airway is patent Respiratory effort is even, unlabored, Respiratory pattern is regular, symmetrical. GI: Abdomen is round obese, Bowel sounds present X 4 quads. : No signs and/or symptoms were reported regarding the genitourinary system. EENT: No signs and/or symptoms were reported regarding the EENT system. Derm: No signs and/or symptoms reported regarding the dermatologic system. Musculoskeletal: No signs and/or symptoms reported regarding the musculoskeletal system. 03:10 Reassessment: Patient and/or family updated on plan of care and expected duration. Pain ha1 level reassessed. Patient is alert, oriented x 3, equal unlabored respirations, skin warm/dry/pink. Patient denies pain at this time. Patient states feeling better. Patient states symptoms have improved. Vital Signs: 02/12 23:36 BP 111 / 60; Pulse 79; Resp 17 S; Temp 98.5(O); Pulse Ox 95% on R/A; Weight 95.25 kg lg3 (R); Height 5 ft. 4 in. (R); Pain /; 02/13 02:10 BP 101 / 62; Pulse 70; Resp 18; Pulse Ox 96% on R/A; ay 03:00 BP 109 / 66; Pulse 70; Resp 17 S; Pulse Ox 96% on R/A; ha1 02/12 23:36 Body Mass Index 36.05 (95.25 kg, 162.56 cm) lg3 02/12 23:36 Pain Scale: Adult lg3 [place] Coma Score: 02:10 Eye Response: spontaneous(4). Motor Response: obeys commands(6). Verbal Response: ay oriented(5). Total: 15. ED Course: 02/12 23:07 Patient arrived in ED. gm2 23:24 Avani Song FNP-C [facility]. kb 23:24 Terry Macdonald MD is Attending Physician. kb 23:43 Triage completed. lg3 23:43 Arm band placed on right wrist. lg3 23:46 Patient has correct armband on for positive identification. Family accompanied patient. lg3 23:46 Patient maintains SpO2 saturation greater than 95% on room air. lg3 12/05 00:06 Inserted saline lock: 20 gauge in left forearm, using aseptic technique. Blood lg3 collected. Flushed with 10 mL NS. 00:17 Abdomen Limited US In Process Unspecified. EDMS 00:49 CT Abd/Pelvis - IV Contrast Only In Process Unspecified. EDMS 02:10 Provided Education on: Procedure Consent. ay 02:10 No provider procedures requiring assistance completed. ay 03:34 IV discontinued, intact, bleeding controlled, No redness/swelling at site. Pressure ha1 dressing applied. Administered Medications: 00:07 Drug: Famotidine IVP 20 mg IVP once; dilute with 10 mL 0.9% NaCl; give over 2 minutes lg3 Route: IVP; Site: left forearm; 00:35 Follow up: Response: No adverse reaction; Marked relief of symptoms ha1 00:07 Drug: Ondansetron IVP 4 mg IVP once; over 2 minutes Route: IVP; Site: left forearm; lg3 00:35 Follow up: Response: No adverse reaction; Marked relief of symptoms ha1 00:07 Drug: NS 0.9% IV 1000 ml IV at 1 bolus Per protocol; to be given as a bolus over 60 lg3 minutes Route: IV; Rate: 1 bolus; Site: left forearm; 03:32 Follow up: Response: No adverse reaction; IV Status: Completed infusion; IV Intake: ha1 1000ml 03:32 Not Given (Patient Refused): morphineor iv 2 mg IVP once over 4 mins ha1 Medication: 02:10 VIS not applicable for this client. ay Intake: 03:32 IV: 1000ml; Total: 1000ml. ha1 Outcome: 03:13 Discharge ordered by . sp4 03:33 Discharged to home ambulatory, with family, ha1 03:33 Condition: stable 03:33 Discharge instructions given to patient, Instructed on discharge instructions, follow up and referral plans. Demonstrated understanding of instructions, follow-up care, 03:34 Patient left the ED. ha1 Signatures: Dispatcher [employer] EDMS Avani Song, BIOMEDICAL ENGINEERING TECHNICIAN-C BIOMEDICAL ENGINEERING TECHNICIAN-CkNorah Gutierrez RN RN lg3 Ryann Zuniga RN RN ha1 Terry Macdonald MD MD sp4 Esmer Newell 2 Hoang Figueroa, RN RN ay
[2024-02-14 12:14] VITALS: TEMP 98.5
[2024-02-14 12:19] VITALS: BP 101/62; O2SAT 96
== END 2024-02-14 03:34 | disposition home or self-care (01) ==
LOC: ER 23:05
DX: R10.13 Epigastric pain (principal); M54.50 Low back pain, unspecified; R11.0 Nausea
CPT/HCPCS: 96361; 85025; 81001; 36415; 83690; 80053; 74177; 76705; 96375; 96374; 99284; Q9967; J2405; J7030; J2270